=== PATIENT | male | born 1995 | race African-American/Black ===

== ENCOUNTER 2016-05-24 09:27 | Emergency (ER) | payer OTHER ==
[~2016-05-24] VITALS: Ht 177.8 cm; Wt 75.0 kg
[2016-05-24 09:28] VITALS: BP 120/70; PULSE 78; RESP 16; TEMP 98.5; O2SAT 99
--- NOTE | 2016-05-24 09:41 | PD ---
HPI . Right hand laceration Chief Complaint: Laceration/Skin Injury Time Seen by Provider: 09:41 Travel History International Travel<30 days: No Contact w/Intl Traveler<30days: No Traveled to known affect area: No History of Present Illness HPI 20-year-old male with no significant past medical history who is right-hand dominant here with complaints of a laceration sustained this morning. Patient was trying to open his door when he somehow accidentally hit the door with his right hand. He now has a laceration near his metacarpal phalangeal joints of the third and fourth digit of the right hand. He is complaining of pain 7/10 and laceration area without any radiation. He has full range of motion of all his digits. He has no other complaints. He is up-to-date on his tetanus shot. [facility] Past Medical History Medical History: Denies Significant Hx Social History Alcohol Use: Yes Tobacco Use: No Substance Use: No Allergies-Medications (Allergen,Severity, Reaction): Coded Allergies: No Known Allergies (Unverified , 05/24/16) Reported Meds & Prescriptions Reported Meds & Active Scripts Active No Active Prescriptions or Reported Medications Review of Systems General / Constitutional: No: Fever Eyes: No: Visual changes HENT: No: Headaches Cardiovascular: No: Chest Pain or Discomfort Respiratory: No: Shortness of Breath Gastrointestinal: No: Abdominal Pain Genitourinary: No: Dysuria Musculoskeletal: No: Pain Skin: Positive Other (right hand laceration ), No Rash Neurologic: No: Weakness Psychiatric: No: Depression Endocrine: No: Polydipsia Hematologic/Lymphatic: No: Easy Bruising Physical Exam Narrative GENERAL: AAO x 3, no acute distress, Well-nourished, well-developed patient. SKIN: Warm and dry. No visible rashes or bruising. Dorsum of right hand near third and fourth metacarpal phalangeal joint there is a eclipsed-shaped laceration measuring approximately 3 cm, there are also 2 small abrasions one on the left and right of the larger laceration HEAD: Normocephalic and atraumatic. EYES: No scleral icterus. No injection or drainage. ENT: No nasal drainage noted. Mucous membranes pink. Airway patent. NECK: Supple, trachea midline. No JVD. CARDIOVASCULAR: Regular rate and rhythm without murmurs, gallops, or rubs. RESPIRATORY: Breath sounds equal bilaterally. No accessory muscle use. No rhonchi or rales. GASTROINTESTINAL: Abdomen soft, non-tender, nondistended. EXTREMITIES: No cyanosis or edema. Tenderness over the metacarpal phalangeal joint of the right hand second and third digit. BACK: Nontender without obvious deformity. No CVA tenderness. PSYCH: AAO x 3, normal affect. Data Data Last Documented VS Vital Signs Date Time Temp Pulse Resp B/P Pulse Ox O2 Delivery O2 Flow Rate FiO2 05/24/16 09:28 98.5 78 16 120/70 99 Room Air Orders Hand, Complete (Ryn1pcf) (05/24/16 09:44) Lidocaine 1% Inj (50 Ml) (Xylocaine 1% I (05/24/16 09:45) MDM Medical Decision Making Medical Screen Exam Complete: Yes Emergency Medical Condition: Yes Medical Record Reviewed: Yes Differential Diagnosis Hand laceration, finger fracture, less likely finger dislocation Narrative Course 20-year-old male with no significant past medical history who is right-hand dominant here with complaints of a laceration sustained this morning. Patient was trying to open his door when he somehow accidentally hit the door with his right hand. He now has a laceration near his metacarpal phalangeal joints of the third and fourth digit of the right hand. He is complaining of pain 7/10 and laceration area without any radiation. He has full range of motion of all his digits. He has no other complaints. He is up-to-date on his tetanus shot. Patient seen and examined. He does have a laceration over the dorsum of his right hand. He also has some tenderness. I will check an x-ray to rule out any type of bony abnormality. If x-ray is normal I will go ahead and proceed with repair as there does not appear to be any tendon,nerve, or vessel injury. He is up-to-date on his tetanus. X-ray was normal. Laceration was repaired with 8 sutures. Patient tolerated without incident. Advised return to emergency department in 7-10 days for removal. Discussed wound cleaning and care. Made aware of signs of infection. Patient verbalized understanding of instructions, questions were answered, and thanked me for their care. I advised them if their condition worsens, please return to the nearest emergency room for further care. Procedures Procedure Narrative LACERATION LOCATION: Right dorsum near third and fourth metacarpal phalangeal joint LENGTH: 3 cm NUMBER OF STITCHES/NIKITA: 8 REPAIR: The area of the laceration was prepped with Betadine and sterilely draped. The laceration was infiltrated with 1% lidocaine. The wound was copiously irrigated and explored without evidence of foreign body, tendon injury or neurovascular injury. The wound was closed using 4-0 Ethilon. This was a single layer repair. A sterile dressing was applied. The patient was advised to keep the dressing clean and dry. Patient tolerated the procedure well. Diagnosis Primary Impression: Laceration of hand Qualified Code: S61.411A - Laceration of right hand without foreign body, initial encounter Patient Instructions: Acute Wound Care (ED), General Instructions, Laceration ( ED) Additional Instructions: Keep area clean and dry. Use gauze as we discussed and change 1-2 times a day. Watch for signs of infection: fever, redness, swelling, warmth, pus or drainage , red streaks around the cut, and increased pain from the area. If you received a tetanus shot, you may experience tenderness at the injection site. This is normal. You will need to have the sutures removed in 7-10 days (8 sutures) . Please return to emergency department for removal. Scripts No Active Prescriptions or Reported Meds Disposition: 01 DISCHARGE HOME Condition: Stable Germaine Ruiz May 24, 2016 09:41
[2016-05-24] MEDS ORDERED: LIDOCAINE HCL 1% 50 ML VIAL INFIL ONE (09:45)
--- NOTE | 2016-05-24 10:57 | RADRPT ---
EXAM DATE/TIME: 05/24/2016 10:21 [facility] COMPARISON: No previous studies available for comparison. INDICATIONS : Right hand pain and laceration after hitting a door. MEDICAL HISTORY : None. SURGICAL HISTORY : None. ENCOUNTER: Initial ACUITY: 1 day PAIN SCORE: 7/10 LOCATION: Right Hand. FINDINGS: Three view examination of the right hand demonstrates no soft tissue swelling, dislocation, or fractu re. The carpal bones appear intact. The interphalangeal and metacarpophalangeal joints are intact. Bony mineralization is normal. CONCLUSION: Unremarkable examination of the right hand. Pavan Maria MD on May 24, 2016 at 10:52 Board Certified Radiologist. This report was verified electronically.
== END 2016-05-24 12:03 | disposition home or self-care (01) ==
LOC: NEPK 09:27
DX: S61.411A Laceration without foreign body of right hand, initial encounter (principal); W22.8XXA Striking against or struck by other objects, initial encounter; Y93.01 Activity, walking, marching and hiking; Y92.008 Other place in unspecified non-institutional (private) residence as the place of occurrence of the external cause
CPT/HCPCS: 12002; 73130

== ENCOUNTER 2016-06-09 18:53 | Emergency (ER) | payer OTHER ==
[~2016-06-09] VITALS: Ht 177.8 cm; Wt 75.0 kg
[2016-06-09 18:54] VITALS: BP 138/75; PULSE 68; RESP 15; TEMP 98.2; O2SAT 98
--- NOTE | 2016-06-09 19:15 | PD ---
HPI Chief Complaint: Wound/Suture/Staple Re-Check Time Seen by Provider: 19:12 Travel History International Travel<30 days: No Contact w/Intl Traveler<30days: No Traveled to known affect area: No History of Present Illness HPI 20-year-old black male presents to emergency for suture removal from his right hand. He had sutures placed 2 weeks ago per the patient. He has no complaints. PFSH Past Medical History Medical History: Denies Significant Hx Tetanus Vaccination: < 5 Years Past Surgical History Surgical History: No Previous Surgery Social History Alcohol Use: Yes Tobacco Use: No Substance Use: No Allergies-Medications (Allergen,Severity, Reaction): Coded Allergies: No Known Allergies (Unverified , 06/09/16) Reported Meds & Prescriptions Reported Meds & Active Scripts Active No Active Prescriptions or Reported Medications Review of Systems Except as stated in HPI: all other systems reviewed are Neg Physical Exam Narrative GENERAL: This is a well-nourished, well-developed patient, in no apparent distress. SKIN: No rashes, ecchymoses or lesions. Warm and dry. HEAD: Atraumatic. Normocephalic. EYES: PERRL, EOMI, no discharge or injection. No scleral icterus. EARS: Clear NOSE: Nasal turbinates appear normal. THROAT: Mucosa pink and moist. Airway patent. NECK: Trachea midline. supple, moves head freely. LUNGS: Clear to auscultation. CV: Regular in rhythm. ABDOMEN: Soft nontender. EXT: No clubbing cyanosis or edema. Well-healed laceration to the right hand. No signs of infection. Data Data Last Documented VS Vital Signs Date Time Temp Pulse Resp B/P Pulse Ox O2 Delivery O2 Flow Rate FiO2 06/09/16 18:54 98.2 68 15 138/75 98 MDM Medical Decision Making Medical Screen Exam Complete: Yes Emergency Medical Condition: Yes Medical Record Reviewed: Yes Differential Diagnosis MDM: High Differential diagnoses: Fracture, sprain, strain, dislocation, contusion, neurovascular injury, healing laceration Narrative Course Patient's sutures are removed without incidence Diagnosis Primary Impression: healing laceration Additional Impression: Visit for suture removal Patient Instructions: General Instructions Additional Instructions: Rest. Daily wound care with soap and water apply Neosporin. Be gentle with your hand not to separate your laceration. Med/Other Pt SpecificInfo: No Meds Exist/No RX given, Wound Care Scripts No Active Prescriptions or Reported Meds Disposition: 01 DISCHARGE HOME Condition: Stable Mark Zayas Jun 09, 2016 19:14
== END 2016-06-09 20:38 | disposition home or self-care (01) ==
LOC: NEPK 18:53
DX: Z48.02 Encounter for removal of sutures (principal)
CPT/HCPCS: 99281

== ENCOUNTER 2017-04-03 22:58 | Emergency (ER) | payer OTHER ==
[~2017-04-03] VITALS: Ht 177.8 cm; Wt 75.0 kg
[2017-04-03 23:15] VITALS: BP 138/81; PULSE 69; RESP 18; TEMP 98.1; O2SAT 99
[2017-04-03] MEDS ORDERED: KETOROLAC TROMETHAMINE 60 MG/2 ML (IM) VIAL IM ONE (23:30)
--- NOTE | 2017-04-04 01:47 | RADRPT ---
EXAM DATE/TIME: 04/04/2017 01:18 [facility] COMPARISON: No previous studies available for comparison. INDICATIONS : Trauma, fall. Neck pain. RADIATION DOSE: 21.50 CTDIvol (mGy) MEDICAL HISTORY : None SURGICAL HISTORY : None. ENCOUNTER: Initial ACUITY: 1 day PAIN SCALE: 5/10 LOCATION: neck TECHNIQUE: Volumetric scanning of the cervical spine was performed. Multiplanar reconstructions in the sagittal, coronal and oblique axial planes were performed. Using automated exposure control and adjustment o f the mA and/or kV according to patient size, radiation dose was kept as low as reasonably achievable to obtain optimal diagnostic quality images. DICOM format image data is available electronically f or review and comparison. FINDINGS: VERTEBRAE: Normal vertebral body height. ALIGNMENT: No evidence of subluxation. C2-C3: The bony spinal canal is normal in size. No evidence of disc bulge or herniation. The neural forami na are bilaterally patent. C3-C4: The bony spinal canal is normal in size. No evidence of disc bulge or herniation. The neural forami na are bilaterally patent. C4-C5: The bony spinal canal is normal in size. No evidence of disc bulge or herniation. The neural forami na are bilaterally patent. C5-C6: The bony spinal canal is normal in size. No evidence of disc bulge or herniation. The neural forami na are bilaterally patent. C6-C7: The bony spinal canal is normal in size. No evidence of disc bulge or herniation. The neural forami na are bilaterally patent. C7-T1: The bony spinal canal is normal in size. No evidence of disc bulge or herniation. The neural forami na are bilaterally patent. CONCLUSION: Negative study. Intact cervical spine. Pavan Trejo MD on April 04, 2017 at 1:45 Board Certified Radiologist. This report was verified electronically.
[2017-04-04] MEDS ORDERED: IBUP-232 PO (02:21)
--- NOTE | 2017-04-04 02:21 | PD ---
HPI Chief Complaint: Fall Time Seen by Provider: 23:17 Travel History International Travel<30 days: No Contact w/Intl Traveler<30days: No Traveled to known affect area: No History of Present Illness HPI 21-year-old male arrived with complaint of neck pain. He reports being stuck in an elevator for about 45 minutes during testing procedure. Timing constant. Severity moderate. No numbness tingling weakness or loss of consciousness. PFSH Past Medical History Medical other: Yes (left acl surgery ) Immunizations Current: Yes Influenza Vaccination: No Social History Alcohol Use: No Tobacco Use: No Substance Use: No Allergies-Medications (Allergen,Severity, Reaction): Coded Allergies: No Known Allergies (Unverified Adverse Reaction, Unknown, 04/03/17) Reported Meds & Prescriptions Reported Meds & Active Scripts Active Ibuprofen 600 Mg Tab 600 Mg PO Q8HR PRN Review of Systems Except as stated in HPI: all other systems reviewed are Neg Physical Exam Narrative GENERAL: 21-year-old male pleasant well nourished well developed Vital Signs Date Time Temp Pulse Resp B/P (MAP) Pulse Ox O2 Delivery O2 Flow Rate FiO2 04/03/17 23:15 98.1 69 18 138/81 (100) 99 SKIN: Warm and dry. HEAD: Atraumatic. Normocephalic. EYES: Pupils equal and round. No scleral icterus. No injection or drainage. ENT: No nasal bleeding or discharge. Mucous membranes pink and moist. NECK: Trachea midline. No JVD. CARDIOVASCULAR: Regular rate and rhythm. RESPIRATORY: No accessory muscle use. Clear to auscultation. Breath sounds equal bilaterally. GASTROINTESTINAL: Abdomen soft, non-tender, nondistended. Hepatic and splenic margins not palpable. MUSCULOSKELETAL: Extremities without clubbing, cyanosis, or edema. No obvious deformities. NEUROLOGICAL: Awake and alert. No obvious cranial nerve deficits. Motor grossly within normal limits. Five out of 5 muscle strength in the arms and legs. Normal speech. PSYCHIATRIC: Appropriate mood and affect; insight and judgment normal. Data Data Last Documented VS Vital Signs Date Time Temp Pulse Resp B/P (MAP) Pulse Ox O2 Delivery O2 Flow Rate FiO2 04/03/17 23:15 98.1 69 18 138/81 (100) 99 Orders Orders Ketorolac Inj (Toradol Inj) (04/03/17 23:30) Ct Cerv Spine W/O Contrast (04/03/17 23:28) Ed Discharge Order (04/04/17 02:23) MDM Medical Decision Making Medical Screen Exam Complete: Yes Emergency Medical Condition: Yes Differential Diagnosis Neck sprain, fracture, dislocation Narrative Course CT of the cervical spine reveals no acute process Patient received IM Toradol with good effect. Diagnosis Primary Impression: Neck muscle strain Qualified Codes: S16.1XXA - Strain of muscle, fascia and tendon at neck level , initial encounter Referrals: Primary Care Physician 2 days Med/Other Pt SpecificInfo: Prescription(s) given Scripts Ibuprofen (Ibuprofen) 600 Mg Tab 600 MG PO Q8HR Y for PAIN, #20 TAB 0 Refills Prov: Sandro Alford MD 04/04/17 Disposition: 01 DISCHARGE HOME Condition: Stable Sandro Alford MD Apr 04, 2017 02:21
== END 2017-04-04 02:48 | disposition home or self-care (01) ==
LOC: NEPE 22:58
DX: S16.1XXA Strain of muscle, fascia and tendon at neck level, initial encounter (principal); X58.XXXA Exposure to other specified factors, initial encounter
CPT/HCPCS: 72125; 96372; 99283; J1885